=== PATIENT | male | born 1940 | race Caucasian/White ===

== ENCOUNTER 2021-11-21 17:54 | Emergency (ER) | payer MEDICARE ==
[2021-11-21 19:22] VITALS: BP 160/82; PULSE 68
== END 2021-11-21 20:27 | disposition home or self-care (01) ==
LOC: JP.ED 17:54
DX: T82.897A Other specified complication of cardiac prosthetic devices, implants and grafts, initial encounter (principal); I10 Essential (primary) hypertension; E66.9 Obesity, unspecified; Z68.20 Body mass index [BMI] 20.0-20.9, adult; Z88.0 Allergy status to penicillin; Z95.0 Presence of cardiac pacemaker
CPT/HCPCS: 71045; 71045-26; 93005; 93010; 99283; 99284-25

== ENCOUNTER 2022-09-18 02:57 | Inpatient (IN) | payer MEDICARE ==
[2022-09-18] MEDS ORDERED: Furosemide 40 MG/4 ML VIAL IVPUSH ONE (03:06)
[2022-09-18] MEDS ORDERED: Sodium Chloride 0.9% 10 ML Syringe FLUSH PRN (03:06)
[2022-09-18 03:34] LABS: ESTIMATED GFR 68 mL/min (>60); TROPONIN I HIGH SENSITIVITY 25.2 pg/mL (<=60.3)
[2022-09-18 03:48] LABS: CORONAVIRUS COVID-19 NAA NEGATIVE (NEGATIVE)
[2022-09-18] MEDS: Albuterol/Ipratropium 3.0-0.5 MG/3 ML Neb Soln NEB PRN ×3 (03:48→18:48)
[2022-09-18] MEDS ORDERED: methylPREDNISolone Sodium Succinate 125 MG/2 ML SDV IVPUSH ONE (05:23)
[2022-09-18] MEDS ORDERED: Bisacodyl 5 MG Tab PO PRN (05:30)
[2022-09-18] MEDS ORDERED: Ondansetron 4 MG Tab.DIS PO PRN (05:30)
[2022-09-18] MEDS ORDERED: Acetaminophen 325 MG Tab PO PRN (05:30)
[2022-09-18] MEDS ORDERED: oxyCODONE 5 MG Tab PO PRN (05:30)
[2022-09-18] MEDS ORDERED: Docusate Sodium 100 MG Cap PO PRN (05:30)
[2022-09-18] MEDS ORDERED: Morphine 2 MG/ML SYRINGE IVPUSH PRN (05:30)
[2022-09-18] MEDS: Azithromycin 500 MG in Sodium Chloride 0.9% 250 ML IV SCH (05:49)
[2022-09-18] MEDS: Albuterol 0.083% 2.5 MG/3 ML Neb Soln NEB PRN (06:10)
[2022-09-18] MEDS: cefTRIAXone 1 GM in Sodium Chloride 0.9% 50 ML IV SCH (07:28)
[2022-09-18] MEDS ORDERED: Furosemide 40 MG Tab PO SCH (08:00)
[2022-09-18] MEDS: Spironolactone 25 MG Tab PO SCH (08:33)
[2022-09-18] MEDS: Apixaban 5 MG Tab PO SCH ×2 (08:34→21:00)
[2022-09-18] MEDS: atorvaSTATin 20 MG Tab PO SCH (08:34)
[2022-09-18] MEDS: Carvedilol 12.5 MG Tab PO SCH ×2 (08:34→17:42)
[2022-09-18] MEDS: Losartan 50 MG Tab PO SCH (08:34)
[2022-09-18] MEDS: Metoprolol Tartrate 25 MG Tab PO SCH ×2 (08:35→21:01)
[2022-09-18] MEDS: Pantoprazole 40 MG Vial IV SCH (08:35)
[2022-09-18] MEDS: Clopidogrel 75 MG Tab PO SCH (08:35)
[2022-09-18] MEDS: Lisinopril 20 MG Tab PO SCH (08:35)
[2022-09-18] MEDS: methylPREDNISolone Sodium Succinate 40 MG/1 ML SDV IVPUSH SCH ×3 (08:38→21:00)
[2022-09-18] MEDS ORDERED: Bumetanide 1 MG/4 ML MDV IVPUSH SCH (09:00)
[2022-09-18] MEDS: Tiotropium Bromide 4 GM Inhalation Spray (2.5mcg/1 dose; 10 doses) INH SCH (10:27)
[2022-09-18] MEDS: Bumetanide 2.5 MG/10 ML MDV IVPUSH SCH (18:24)
[2022-09-18] MEDS: Tamsulosin 0.4 MG Cap.ER PO SCH (21:00)
[2022-09-19] MEDS: Albuterol/Ipratropium 3.0-0.5 MG/3 ML Neb Soln NEB PRN ×4 (01:18→20:25)
[2022-09-19] MEDS: methylPREDNISolone Sodium Succinate 40 MG/1 ML SDV IVPUSH SCH ×4 (03:32→21:04)
[2022-09-19 05:05] LABS: ESTIMATED GFR 56 mL/min (>60)
[2022-09-19] MEDS: Azithromycin 500 MG in Sodium Chloride 0.9% 250 ML IV SCH (05:06)
[2022-09-19] MEDS: Bumetanide 2.5 MG/10 ML MDV IVPUSH SCH (06:13)
[2022-09-19] MEDS: cefTRIAXone 1 GM in Sodium Chloride 0.9% 50 ML IV SCH (06:14)
[2022-09-19] MEDS: Losartan 50 MG Tab PO SCH (08:55)
[2022-09-19] MEDS: atorvaSTATin 20 MG Tab PO SCH (08:55)
[2022-09-19] MEDS: Metoprolol Tartrate 25 MG Tab PO SCH ×2 (08:56→21:02)
[2022-09-19] MEDS: Pantoprazole 40 MG Vial IV SCH (08:56)
[2022-09-19] MEDS: Apixaban 5 MG Tab PO SCH ×2 (08:56→21:03)
[2022-09-19] MEDS: Lisinopril 20 MG Tab PO SCH (08:56)
[2022-09-19] MEDS: Clopidogrel 75 MG Tab PO SCH (08:56)
[2022-09-19] MEDS: Spironolactone 25 MG Tab PO SCH (08:57)
[2022-09-19] MEDS: Carvedilol 12.5 MG Tab PO SCH ×2 (08:57→16:28)
[2022-09-19] MEDS ORDERED: Pneumococcal Polyvalent-23 Vaccine 0.5 ML SDV IM ONE (09:00)
[2022-09-19] MEDS: Tiotropium Bromide 4 GM Inhalation Spray (2.5mcg/1 dose; 10 doses) INH SCH (09:17)
[2022-09-19] MEDS: Benzonatate 100 MG Cap PO SCH ×2 (13:00→21:03)
[2022-09-19] MEDS: Bumetanide 1 MG/4 ML MDV IVPUSH SCH (17:19)
[2022-09-19] MEDS ORDERED: Codeine/guaiFENesin 10-100 MG/5 ML Syrup 5 ML Cup PO PRN (17:39)
[2022-09-19] MEDS: Tamsulosin 0.4 MG Cap.ER PO SCH (21:03)
[2022-09-20] MEDS: Albuterol/Ipratropium 3.0-0.5 MG/3 ML Neb Soln NEB PRN ×3 (02:22→19:27)
[2022-09-20] MEDS: methylPREDNISolone Sodium Succinate 40 MG/1 ML SDV IVPUSH SCH ×2 (03:28→10:55)
[2022-09-20] MEDS: Azithromycin 500 MG in Sodium Chloride 0.9% 250 ML IV SCH (05:32)
[2022-09-20] MEDS: Bumetanide 1 MG/4 ML MDV IVPUSH SCH ×2 (05:33→18:05)
[2022-09-20 06:19] LABS: ESTIMATED GFR 56 mL/min (>60)
[2022-09-20] MEDS: cefTRIAXone 1 GM in Sodium Chloride 0.9% 50 ML IV SCH (07:05)
[2022-09-20] MEDS: Clopidogrel 75 MG Tab PO SCH (08:07)
[2022-09-20] MEDS: Carvedilol 12.5 MG Tab PO SCH ×2 (08:07→18:04)
[2022-09-20] MEDS: Losartan 50 MG Tab PO SCH (08:07)
[2022-09-20] MEDS: Metoprolol Tartrate 25 MG Tab PO SCH ×2 (08:07→21:20)
[2022-09-20] MEDS: atorvaSTATin 20 MG Tab PO SCH (08:07)
[2022-09-20] MEDS: Pantoprazole 40 MG Vial IV SCH (08:08)
[2022-09-20] MEDS: Benzonatate 100 MG Cap PO SCH ×3 (08:08→21:21)
[2022-09-20] MEDS: Tiotropium Bromide 4 GM Inhalation Spray (2.5mcg/1 dose; 10 doses) INH SCH (08:08)
[2022-09-20] MEDS: Spironolactone 25 MG Tab PO SCH (08:08)
[2022-09-20] MEDS: Lisinopril 20 MG Tab PO SCH (08:08)
[2022-09-20] MEDS: Apixaban 5 MG Tab PO SCH ×2 (08:08→21:20)
[2022-09-20] MEDS: Tamsulosin 0.4 MG Cap.ER PO SCH (21:20)
[2022-09-20] MEDS: Albuterol 0.083% 2.5 MG/3 ML Neb Soln NEB PRN (22:31)
[2022-09-21] MEDS: Albuterol/Ipratropium 3.0-0.5 MG/3 ML Neb Soln NEB PRN (02:27)
[2022-09-21] MEDS: Bumetanide 1 MG/4 ML MDV IVPUSH SCH (05:27)
[2022-09-21] MEDS ORDERED: Tiotropium Bromide 4 GM Inhalation Spray (2.5mcg/1 dose; 10 doses) INH SCH (07:00)
[2022-09-21] MEDS ORDERED: Pantoprazole 40 MG Tab.CR PO SCH (07:30)
[2022-09-21] MEDS: Carvedilol 12.5 MG Tab PO SCH (07:42)
[2022-09-21] MEDS: Apixaban 5 MG Tab PO SCH (08:43)
[2022-09-21] MEDS: Benzonatate 100 MG Cap PO SCH (08:43)
[2022-09-21] MEDS: Clopidogrel 75 MG Tab PO SCH (08:44)
[2022-09-21] MEDS: atorvaSTATin 20 MG Tab PO SCH (08:44)
[2022-09-21] MEDS: Lisinopril 20 MG Tab PO SCH (08:44)
[2022-09-21] MEDS: Spironolactone 25 MG Tab PO SCH (08:44)
[2022-09-21] MEDS: Losartan 50 MG Tab PO SCH (08:45)
[2022-09-21] MEDS: Metoprolol Tartrate 25 MG Tab PO SCH (08:45)
[2022-09-21] MEDS ORDERED: Cefdinir 300 MG Cap PO SCH (09:00)
[2022-09-21] MEDS ORDERED: Potassium Chloride 20 MEQ Tab.ER PO ONE (09:00)
[2022-09-21] MEDS ORDERED: Azithromycin 250 MG Tab PO SCH (09:00)
[2022-09-21 10:59] VITALS: BP 130/60; PULSE 62
== END 2022-09-21 12:17 | disposition home or self-care (01) | DRG 193 ==
LOC: JP.ED 02:57 → JP.MS 05:06
PROVIDERS: ADMIT Hospitalist; ATTEND Internal Medicine
DX: J18.9 Pneumonia, unspecified organism (principal); I50.43 Acute on chronic combined systolic (congestive) and diastolic (congestive) heart failure; J96.01 Acute respiratory failure with hypoxia; J44.0 Chronic obstructive pulmonary disease with (acute) lower respiratory infection; I25.10 Atherosclerotic heart disease of native coronary artery without angina pectoris; I48.91 Unspecified atrial fibrillation; H91.90 Unspecified hearing loss, unspecified ear; H54.7 Unspecified visual loss; I25.83 Coronary atherosclerosis due to lipid rich plaque; Z20.822 Contact with and (suspected) exposure to COVID-19; N42.9 Disorder of prostate, unspecified; M19.90 Unspecified osteoarthritis, unspecified site; E66.9 Obesity, unspecified; Z98.49 Cataract extraction status, unspecified eye; Z79.01 Long term (current) use of anticoagulants; Z79.899 Other long term (current) drug therapy; Z79.02 Long term (current) use of antithrombotics/antiplatelets; Z88.0 Allergy status to penicillin; Z95.5 Presence of coronary angioplasty implant and graft; Z87.09 Personal history of other diseases of the respiratory system; Z95.0 Presence of cardiac pacemaker; Z68.35 Body mass index [BMI] 35.0-35.9, adult; I11.0 Hypertensive heart disease with heart failure
CPT/HCPCS: 0241U; 36415; 71046; 80048; 80053; 81001; 83605; 83880; 84145; 84484; 85025; 85027; 86140; 87040; 93005; 94640; 93010; 96374; 99222; 99232; 99238; 99285; 99285-25; A9270-GY; C9113; J0456; J0696; J1940; J2920; J2930; J3490; J7050; J7620

== ENCOUNTER 2024-07-20 10:24 | Emergency (ER) | payer MEDICARE ==
[2024-07-20 11:19] LABS: BASOPHILS ABSOLUTE AUTO 0.09 K/uL (0.00-0.10); EOSINOPHILS PERCENT AUTO 2.2 % (0.0-5.4); HEMATOCRIT 42.2 % (38.4-49.7); HEMOGLOBIN 13.9 g/dL (12.9-16.9); IMMATURE GRAN ABSOLUTE AUTO 0.03 K/uL (0.00-0.23); IMMATURE GRAN PERCENT AUTO 0.3 % (0.0-0.7); LYMPHOCYTES ABSOLUTE AUTO 0.73 K/uL (0.8-3.3); LYMPHOCYTES PERCENT AUTO 8.1 % (11.4-47.7); MEAN CORPUSCULAR HEMOGLOBIN 29.8 pg (31.6-35.5); MEAN CORPUSCULAR HGB CONC 32.9 g/dL (31.6-35.5); MEAN CORPUSCULAR VOLUME 90.4 fL (81.4-99.0); MONOCYTES PERCENT AUTO 3.3 % (3.3-12.6); NEUTROPHILS ABSOLUTE AUTO 7.65 K/uL (1.0-7.6); NEUTROPHILS PERCENT AUTO 85.1 % (40.0-78.1); PLATELET COUNT,PLT 229 K/uL (130-375); RED BLOOD CELL COUNT 4.67 M/uL (4.14-5.76)
[2024-07-20] MEDS: Meclizine 25 MG Tab PO ONE (11:30)
[2024-07-20 11:39] LABS: PROTHROMBIN TIME 10.7 sec (9.2-10.6); PTT,PARTIAL THROMBOPLSTIN TIME 25.3 sec (21.8-27.3)
[2024-07-20 11:45] LABS: A/G RATIO 1.1 (1.2-2.2); ALANINE AMINOTRANSFERASE,ALT 27 U/L (12-78); ALBUMIN 3.7 g/dL (3.4-5.0); ALKALINE PHOSPHATASE 75 U/L (46-116); ANION GAP 7.7 mmol/L (5.0-14.0); ASPARTATE AMNIOTRANSFERASE,AST 17 U/L (15-37); BILIRUBIN TOTAL 0.9 mg/dL (0.2-1.0); BLOOD UREA NITROGEN,BUN 19 mg/dL (7-18); CARBON DIOXIDE,CO2 29 mmol/L (21-32); CHLORIDE,CL 107 mmol/L (100-108); CREATININE 1.5 mg/dL (0.8-1.3); EST CRCL DRUG DOSING (CG) 37.97 mL/min; ESTIMATED GFR 46 mL/min (>60); GLUCOSE RANDOM 114 mg/dL (74-106); MAGNESIUM 2.1 mg/dL (1.8-2.4); PHOSPHORUS 2.5 mg/dL (2.5-4.9); POTASSIUM,K 4.3 mmol/L (3.6-5.2); PROTEIN TOTAL,TP 7.2 g/dL (6.4-8.2); SODIUM,NA 144 mmol/L (140-148); T4 FREE 1.19 ng/dL (0.76-1.46); TROPONIN I HIGH SENSITIVITY 9.7 pg/mL (<=60.3)
[2024-07-20] MEDS ORDERED: LORazepam 2 MG/ML SDV IVPUSH ONE (12:33)
[2024-07-20] MEDS: LORazepam 1 MG Tab PO ONE (12:48)
[2024-07-20] MEDS: Aspirin 81 MG Tab.Chew PO ONE (12:49)
[2024-07-20] MEDS: Iopamidol 755 Mg/ML 100 ML Bottle IV ONE (12:59)
[2024-07-20] MEDS: Sodium Chloride 0.9% 100 ML IV SCH (12:59)
[2024-07-20 14:20] VITALS: BP 137/114; PULSE 70
== END 2024-07-20 14:47 | disposition home or self-care (01) ==
LOC: JP.ED 10:24
DX: H81.8X9 Other disorders of vestibular function, unspecified ear (principal); I10 Essential (primary) hypertension; E66.9 Obesity, unspecified; Z95.5 Presence of coronary angioplasty implant and graft; Z79.899 Other long term (current) drug therapy; Z79.01 Long term (current) use of anticoagulants; Z88.0 Allergy status to penicillin; Z68.34 Body mass index [BMI] 34.0-34.9, adult
CPT/HCPCS: 36415; 70450; 70496; 70498; 71045; 80053; 83605; 83735; 84100; 84439; 84484; 85025; 85610; 85730; 93005; 93010; 99284; 99285; A9270; J3490; Q9967

== ENCOUNTER 2024-10-12 13:55 | Emergency (ER) | payer MEDICARE ==
[2024-10-12 16:29] LABS: BASOPHILS ABSOLUTE AUTO 0.09 K/uL (0.00-0.10); EOSINOPHILS ABSOLUTE AUTO 0.59 K/uL (0.00-0.40); EOSINOPHILS PERCENT AUTO 6.8 % (0.0-5.4); HEMATOCRIT 41.5 % (38.4-49.7); IMMATURE GRAN ABSOLUTE AUTO 0.03 K/uL (0.00-0.23); IMMATURE GRAN PERCENT AUTO 0.3 % (0.0-0.7); LYMPHOCYTES ABSOLUTE AUTO 0.82 K/uL (0.8-3.3); LYMPHOCYTES PERCENT AUTO 9.5 % (11.4-47.7); MEAN CORPUSCULAR HEMOGLOBIN 30.3 pg (31.6-35.5); MEAN CORPUSCULAR HGB CONC 33.7 g/dL (31.6-35.5); MEAN CORPUSCULAR VOLUME 89.8 fL (81.4-99.0); MONOCYTES PERCENT AUTO 8.1 % (3.3-12.6); NEUTROPHILS ABSOLUTE AUTO 6.44 K/uL (1.0-7.6); NEUTROPHILS PERCENT AUTO 74.3 % (40.0-78.1); PLATELET COUNT,PLT 218 K/uL (130-375); RED BLOOD CELL COUNT 4.62 M/uL (4.14-5.76); WHITE BLOOD CELL COUNT,WBC 8.7 K/uL (3.2-11.0)
[2024-10-12] MEDS: Albuterol/Ipratropium 3.0-0.5 MG/3 ML Neb Soln NEB ONE (16:31)
[2024-10-12] MEDS: Furosemide 40 MG/4 ML VIAL IVPUSH ONE (16:32)
[2024-10-12 16:59] LABS: ALANINE AMINOTRANSFERASE,ALT 21 U/L (12-78); ALBUMIN 3.6 g/dL (3.4-5.0); ALKALINE PHOSPHATASE 71 U/L (46-116); ANION GAP 5.8 mmol/L (5.0-14.0); ASPARTATE AMNIOTRANSFERASE,AST 18 U/L (15-37); BILIRUBIN TOTAL 1.5 mg/dL (0.2-1.0); BLOOD UREA NITROGEN,BUN 13 mg/dL (7-18); CALCIUM 8.3 mg/dL (8.5-10.1); CARBON DIOXIDE,CO2 32 mmol/L (21-32); CHLORIDE,CL 103 mmol/L (100-108); CREATININE 1.4 mg/dL (0.8-1.3); EST CRCL DRUG DOSING (CG) 40.68 mL/min; ESTIMATED GFR 50 mL/min (>60); GLUCOSE RANDOM 103 mg/dL (74-106); POTASSIUM,K 3.8 mmol/L (3.6-5.2); PRO B-TYPE NATRIUR PEPT,BNPPRO 335 pg/mL (5-450); PROTEIN TOTAL,TP 7.1 g/dL (6.4-8.2); SODIUM,NA 141 mmol/L (140-148)
[2024-10-12 17:27] VITALS: BP 144/70; PULSE 73
[2024-10-12] MEDS: methylPREDNISolone Sodium Succinate 125 MG/2 ML SDV IVPUSH ONE (17:58)
[2024-10-12] MEDS: Levalbuterol HCl 1.25 MG/3 ML Neb NEB ONE ×2 (17:58)
== END 2024-10-12 18:52 | disposition home or self-care (01) ==
LOC: JP.ED 13:55
DX: J44.1 Chronic obstructive pulmonary disease with (acute) exacerbation (principal); I10 Essential (primary) hypertension; E66.9 Obesity, unspecified; Z87.891 Personal history of nicotine dependence; Z88.0 Allergy status to penicillin; Z79.51 Long term (current) use of inhaled steroids; Z79.899 Other long term (current) drug therapy; Z68.34 Body mass index [BMI] 34.0-34.9, adult
CPT/HCPCS: 36415; 71045; 80053; 83880; 85025; 87428; 94640; 96374; 99285; J1940; J2919; J7612; 99284; J7620